=== PATIENT | female | born 1940 | race Caucasian/White ===

== ENCOUNTER 2016-11-04 16:51 | Emergency (ER) | payer OTHER ==
[2016-11-04 17:04] VITALS: TEMP 97.5; BMI 19.5
--- NOTE | 2016-11-04 17:29 | PDOC ---
*Physical Exam - Vital Signs Last Vital Signs Temp Pulse Resp BP Pulse Ox 97.5 F L 61 18 210/86 99 11/04/16 16:54 11/04/16 16:54 11/04/16 16:54 11/04/16 16:54 11/04/16 16:54 ED Treatment Course - LABORATORY CBC & Chemistry Diagram: 11/04/16 18:00 11/04/16 18:04 Medical Decision Making - Medical Decision Making 11/04/16 17:29 Pt seen by the Advanced Practice Provider under my direct supervision Ancillary studies reviewed I agree with plan as outlined by the Advanced Practice Provider JAYANT Tang *DC/Admit/Observation/Transfer Diagnosis at time of Disposition: Hypertension - Discharge Dispostion Disposition: HOME Condition at time of disposition: Stable - Prescriptions Prescriptions: Clonidine HCl [Catapres] 0.1 mg PO TID #30 tablet Clonidine HCl [Catapres] 0.1 mg PO TID #90 tablet - Referrals Referrals: Annmarie Gotti MD [Primary Care Provider] - - Patient Instructions Printed Discharge Instructions: High Blood Pressure Additional Instructions: Rx: Catapres .1mg three times a day Dr. Gotti is requesting that you take one baby aspirin 81 mg daily Rest Return to the ER for severfe/persistent/worsening symptoms FOLLOW UP WITH DR. GOTTI THIS WEEK Print Language: TAMAZIGHT
[2016-11-04 17:50] LABS: URINE APPEARANCE CLEAR; URINE BILIRUBIN NEGATIVE (NEGATIVE); URINE COLOR COLORLESS; URINE GLUCOSE (UA) 2+ (NEGATIVE); URINE KETONE NEGATIVE (NEGATIVE); URINE LEUK ESTERASE NEGATIVE (NEGATIVE); URINE NITRITE NEGATIVE (NEGATIVE); URINE PROTEIN NEGATIVE (NEGATIVE); URINE UROBILINOGEN NEGATIVE E.U./dl (0.2-1.0)
[2016-11-04 17:55] LABS: URINE BLOOD 1+ (NEGATIVE)
--- NOTE | 2016-11-04 17:58 | PDOC ---
History of Present Illness - General Chief Complaint: Pain Stated Complaint: NUMBNESS TO RIGHT SIDE Time Seen by Provider: 11/04/16 17:10 History Source: Patient Exam Limitations: No Limitations - History of Present Illness Initial Comments: 11/04/16 17:05 76-year-old female with history of Alzheimer's and diabetes presents with complaints of right arm cramping that lasted approximately 5 minutes starting in her fingers radiating up to her right shoulder while she was reaching for something in her back. Patient states symptoms decided had no other complaints including headache, chest pain, shortness of breath, dizziness, or numbness of the right upper extremity. Patient states has no history of neuropathy and denies previous symptoms. Patient denies any recent change in medications, recent change in weight, or recent change in diet. Timing/Duration: momentarily, resolved prior to arrival Severity: mild Associated Symptoms: reports: denies symptoms Past History - Travel Traveled outside of the country in the last 30 days: No Close contact w/someone who was outside of country & ill: No - Past Medical History Allergies/Adverse Reactions: Allergies Allergy/AdvReac Type Severity Reaction Status Date / Time No Known Allergies Allergy Verified 11/04/16 17:05 Home Medications: Ambulatory Orders Clonidine HCl [Catapres] 0.1 mg PO TID #30 tablet 11/04/16 Clonidine HCl [Catapres] 0.1 mg PO TID #90 tablet 11/04/16 Metformin HCl 500 mg PO DAILY 11/04/16 Diabetes: Yes - Surgical History Cholecystectomy: Yes - Psycho/Social/Smoking Cessation Hx Anxiety: No Suicidal Ideation: No Smoking History: Never smoked Have you smoked in the past 12 months: No Information on smoking cessation initiated: No Hx Alcohol Use: No Drug/Substance Use Hx: No Substance Use Type: None Patient Lives Alone: No Lives with/in: spouse/SO Review of Systems - Review of Systems Able to Perform ROS?: Yes Constitutional: No: Symptoms Reported HEENTM: No: Symptoms Reported Respiratory: No: Symptoms reported Cardiac (ROS): No: Symptoms Reported ABD/GI: No: Symptoms Reported : No: Symptoms Reported Musculoskeletal: Yes: Muscle Pain Integumentary: No: Symptoms Reported Neurological: No: Symptoms reported, Numbness, Weakness, Dizziness *Physical Exam - Vital Signs Last Vital Signs Temp Pulse Resp BP Pulse Ox 97.5 F L 61 18 210/86 99 11/04/16 16:54 11/04/16 16:54 11/04/16 16:54 11/04/16 16:54 11/04/16 16:54 - Physical Exam General Appearance: Yes: Nourished, Appropriately Dressed. No: Apparent Distress Heart Score/ECG Review - ECG Intrepretation Rhythm: Regular Rhythm (rate 63normal sinus rhythm) ED Treatment Course - LABORATORY CBC & Chemistry Diagram: 11/04/16 18:00 11/04/16 18:04 - RADIOLOGY Radiology Studies Ordered: Category Date Time Status HEAD CT WITHOUT CONTRAST [CT] Stat CT Scan 11/04/16 17:13 Ordered CHEST X-RAY PORTABLE* [RAD] Stat Radiology 11/04/16 17:14 Ordered Medical Decision Making - Medical Decision Making 11/04/16 17:08 Patient here for evaluation of episodic right arm pain that she describes as a cramping sensation beginning in her fingers going to her right shoulder. Patient on exam and arrival had no other complaints was asymptomatic but had a noted BP of 200/100 despite having no history of hypertension. Patient had no neuro focal deficits and had no complaints of headache change in urine pattern, or lower extremity edema. Patient ordered for cardiac workup including a head CT. Patient also ordered for magnesium and chemistry to rule out electrolyte imbalance. 11/04/16 17:59 Laboratory Tests 11/04/16 17:38 Urine Glucose (UA) 2+ H Urine Blood 1+ H Ur Leukocyte Esterase Negative *DC/Admit/Observation/Transfer Diagnosis at time of Disposition: Hypertension - Discharge Dispostion Disposition: HOME Condition at time of disposition: Stable - Prescriptions Prescriptions: Clonidine HCl [Catapres] 0.1 mg PO TID #30 tablet Clonidine HCl [Catapres] 0.1 mg PO TID #90 tablet - Referrals Referrals: Annmarie Gotti MD [Primary Care Provider] - - Patient Instructions Printed Discharge Instructions: High Blood Pressure Additional Instructions: Rx: Catapres .1mg three times a day Dr. Gotti is requesting that you take one baby aspirin 81 mg daily Rest Return to the ER for severfe/persistent/worsening symptoms FOLLOW UP WITH DR. GOTTI THIS WEEK Print Language: CHINESE
[2016-11-04 18:05] LABS: URINE BACTERIA RARE /hpf (NONE SEEN); URINE HYALINE CAST 1 /lpf; URINE RBC <1 /hpf (0-3); URINE WBC 2 /hpf (3-5)
[2016-11-04 18:08] LABS: BASOPHIL 0.6 % (0-2.0); EOSINOPHIL 4.2 % (0-4.5); MCHC 32.1 g/dl (32.0-36.0); NEUTROPHILS 59.3 % (42.8-82.8); PLATELET COUNT 254 K/MM3 (134-434); RDW 15.1 % (11.6-15.6); WHITE BLOOD COUNT 7.3 K/mm3 (4.0-10.0)
[2016-11-04 18:24] LABS: INR 1.08 (0.82-1.09); PROTHROMBIN TIME (PATIENT) 11.9 SEC (9.98-11.88)
[2016-11-04 18:34] LABS: ALBUMIN 3.7 g/dl (3.4-5.0); ANION GAP 9 (8-16); BILIRUBIN,TOTAL 0.2 mg/dL (0.2-1.0); CO2 27 mmol/L (21-32); CREATININE 1.1 mg/dL (0.55-1.02); GLUCOSE,RANDOM 263 mg/dL (74-106); MAGNESIUM 1.8 mg/dL (1.8-2.4); SGOT/AST 12 U/L (15-37); SGPT/ALT 17 U/L (12-78); TOT PROT 7.4 g/dl (6.4-8.2)
[2016-11-04 18:36] LABS: ALK PHOS 102 U/L (45-117); TROPONIN I < 0.02 ng/ml (0.00-0.05)
[2016-11-04] MEDS ORDERED: ENALAPRIL MALEATE 5 MG TABLET (FP) ONE (20:05)
[2016-11-04] MEDS ORDERED: ENALAPRIL MALEATE 10 MG TABLET (FP) PO SCH (20:15)
--- NOTE | 2016-11-04 20:40 | PDOC ---
*Physical Exam - Vital Signs Last Vital Signs Temp Pulse Resp BP Pulse Ox 97.5 F L 64 16 200/100 99 11/04/16 16:54 11/04/16 20:05 11/04/16 20:05 11/04/16 20:05 11/04/16 16:54 ED Treatment Course - LABORATORY CBC & Chemistry Diagram: 11/04/16 18:00 11/04/16 18:04 - ADDITIONAL ORDERS Additional order review: Laboratory Results 11/04/16 11/04/16 11/04/16 18:04 18:04 17:38 INR 1.08 Sodium 142 Potassium 3.9 Chloride 106 Carbon Dioxide 27 Anion Gap 9 BUN 17 Creatinine 1.1 H Creat Clearance w eGFR 48.04 Random Glucose 263 H Calcium 9.0 Magnesium 1.8 Total Bilirubin 0.2 AST 12 L ALT 17 Alkaline Phosphatase 102 Creatine Kinase 100 Troponin I < 0.02 Total Protein 7.4 Albumin 3.7 Urine Color Colorless Urine Appearance Clear Urine pH 6.0 Ur Specific Julian 1.010 Urine Protein Negative Urine Glucose (UA) 2+ H Urine Ketones Negative Urine Blood 1+ H Urine Nitrite Negative Urine Bilirubin Negative Urine Urobilinogen Negative Ur Leukocyte Esterase Negative Urine RBC <1 Urine WBC 2 Ur Epithelial Cells Rare Urine Bacteria Rare Hyaline Casts 1 11/04/16 18:00 RBC 4.42 MCV 87.0 MCHC 32.1 RDW 15.1 MPV 9.0 Neutrophils % 59.3 Lymphocytes % 29.3 Monocytes % 6.6 Eosinophils % 4.2 Basophils % 0.6 Progress Note - Progress Note Progress Note: 2015hrs: Called Dr. Gotit [phone] 2209hrs: Spoke to Dr. Gotti/ advised to d/c with Catapress .1mg tid and sugg asa 81mg daily D/u ingrid quinonez in his office *DC/Admit/Observation/Transfer Diagnosis at time of Disposition: Hypertension Qualifiers: Hypertension type: unspecified secondary hypertension Qualified Code(s): I15.9 - Secondary hypertension, unspecified - Discharge Dispostion Disposition: HOME Condition at time of disposition: Stable Admit: No - Prescriptions Prescriptions: Clonidine HCl [Catapres] 0.1 mg PO TID #30 tablet - Referrals Referrals: Annmarie Gotti MD [Primary Care Provider] - - Patient Instructions Printed Discharge Instructions: High Blood Pressure Additional Instructions: Rx: Catapres .1mg three times a day Dr. Gotti is requesting that you take one baby aspirin 81 mg daily Rest Return to the ER for severfe/persistent/worsening symptoms FOLLOW UP WITH DR. GOTTI THIS WEEK Print Language: MONGOLIAN
[2016-11-04] MEDS ORDERED: cloNIDine HCL 0.1 MG TABLET ONE (21:05)
[2016-11-04] MEDS ORDERED: cloNIDine HCL 0.1 MG TABLET PO ONE (21:08)
[2016-11-04 22:04] VITALS: BP 160/77; PULSE 60
[2016-11-05] MEDS ORDERED: cloNIDine HCL 0.1 MG TABLET PO SCH (10:00)
--- NOTE | 2016-11-05 21:15 | EKG ---
Test Reason : Blood Pressure : / mmHG Vent. Rate : 061 BPM Atrial Rate : 061 BPM P-R Int : 172 ms QRS Dur : 084 ms QT Int : 416 ms P-R-T Axes : 028 -10 025 degrees QTc Int : 418 ms NORMAL SINUS RHYTHM NORMAL ECG NO PREVIOUS ECGS AVAILABLE Confirmed by LIZ GOODWIN MD ([id number]) on 11/05/2016 9:14:46 PM Referred By: Confirmed By:LIZ GOODWIN MD
== END 2016-11-04 22:37 | disposition home or self-care (01) ==
LOC: JER 16:51
DX: I10 Essential (primary) hypertension (principal); E11.9 Type 2 diabetes mellitus without complications; Z79.84 Long term (current) use of oral hypoglycemic drugs
CPT/HCPCS: 36415; 70450-TC; 71010-TC; 80053; 81003; 81015; 82550; 83735; 84484; 85025; 85610; 93005; 93010; 99283-25

== ENCOUNTER 2016-11-08 18:28 | Observation (INO) | payer OTHER ==
--- NOTE | 2016-11-08 18:45 | PDOC ---
History of Present Illness - History of Present Illness Initial Comments: 11/08/16 19:40 Patient is a 76 year old female with significant medical hx of Alzheimers and DM who is presenting to the ED after receiving a positive MRI for subdural hemorrhage. History was provided by family at bedside. Patient is chronically forgetful at baseline but recently has been complaining of right sided headache for the past few days. Family reports that they feel the patient may have fell without telling them. The patient was seen in the ED on 11/04 for right arm pain and received a Head CT that was negative for bleed. She followed up with her PMD who sent her for brain MRI which demonstrated subdural hemorrhage. Denies weakness, vomiting, change in behavior, seizures, or change in mental status. Patient recently started taking aspirin a few days ago. PCP: Dr. Wei <Barbara Carvalho - Last Filed: 11/08/16 20:17> <Benita Pak - Last Filed: 11/10/16 08:11> - General Chief Complaint: CVA/TIA Stated Complaint: PCP SENT/BLOOD CLOT Time Seen by Provider: 11/08/16 18:42 Past History <Barbara Carvalho - Last Filed: 11/08/16 20:17> - Past Medical History Dementia: No (MEMOR LOSS) Diabetes: Yes - Surgical History Cholecystectomy: Yes - Psycho/Social/Smoking Cessation Hx Anxiety: No Suicidal Ideation: No Smoking History: Never smoked Have you smoked in the past 12 months: No Hx Alcohol Use: No Drug/Substance Use Hx: No Substance Use Type: None <Benita Pak - Last Filed: 11/10/16 08:11> - Past Medical History Allergies/Adverse Reactions: Allergies Allergy/AdvReac Type Severity Reaction Status Date / Time No Known Allergies Allergy Verified 11/08/16 18:35 Home Medications: Ambulatory Orders Metformin HCl 500 mg PO DAILY 11/04/16 Amlodipine Besylate [Norvasc -] 10 mg PO DAILY tablet 11/09/16 Donepezil HCl [Aricept -] 5 mg PO DAILY tablet 11/09/16 Review of Systems - Review of Systems Comments:: 11/08/16 19:40 GENERAL/CONSTITUTIONAL: No fever or chills. No weakness. HEAD, EYES, EARS, NOSE AND THROAT: No change in vision. No ear pain or discharge. No sore throat. CARDIOVASCULAR: No chest pain or shortness of breath. RESPIRATORY: No cough, wheezing, or hemoptysis. GASTROINTESTINAL: No nausea, vomiting, diarrhea or constipation. GENITOURINARY: No dysuria, frequency, or change in urination. MUSCULOSKELETAL: No joint or muscle swelling or pain. No neck or back pain. ENDOCRINE: No increased thirst. No abnormal weight change. SKIN: No rash NEUROLOGIC: Right sided headache, forgetfulness (chronic). No vertigo, loss of consciousness, or change in strength/sensation. <MaiaBarbara - Last Filed: 11/08/16 20:17> *Physical Exam - Vital Signs Last Vital Signs Temp Pulse Resp BP Pulse Ox 98.3 F 100 H 20 138/74 97 11/08/16 18:30 11/08/16 18:30 11/08/16 18:30 11/08/16 18:30 11/08/16 18:30 <MaiaBarbara - Last Filed: 11/08/16 20:17> - Vital Signs Last Vital Signs Temp Pulse Resp BP Pulse Ox 98.3 F 100 H 20 138/74 97 11/08/16 18:30 11/08/16 18:30 11/08/16 18:30 11/08/16 18:30 11/08/16 18:30 - Physical Exam Comments: GENERAL: Awake, alert, and oriented to person and place, in no acute distress HEAD: No signs of trauma EYES: PERRLA, EOMI, sclera anicteric, conjunctiva clear ENT: Auricles normal inspection, hearing grossly normal, nares patent, oropharynx clear without exudates. Moist mucosa NECK: Normal ROM, supple, no lymphadenopathy, JVD, or masses LUNGS: Breath sounds equal, clear to auscultation bilaterally. No wheezes, and no crackles HEART: Regular rate and rhythm, normal S1 and S2, no murmurs, rubs or gallops ABDOMEN: Soft, nontender, normoactive bowel sounds. No guarding, no rebound. No masses EXTREMITIES: Normal range of motion, no edema. No clubbing or cyanosis. No cords, erythema, or tenderness NEUROLOGICAL: Cranial nerves II through XII grossly intact. Normal speech, normal gait. No weakness, no numbness. SKIN: Warm, Dry, normal turgor, no rashes or lesions noted. <Benita Pak - Last Filed: 11/10/16 08:11> ED Treatment Course - LABORATORY CBC & Chemistry Diagram: 11/08/16 19:29 11/08/16 19:29 - RADIOLOGY Radiograph Interpretation: 11/08/16 20:[address] Impression: No definite interval change is identified. Reported By: Hakeem Fisher MD <Barbara Carvalho - Last Filed: 11/08/16 20:17> - LABORATORY CBC & Chemistry Diagram: 11/08/16 19:29 11/08/16 19:29 <Benita Pak - Last Filed: 11/10/16 08:11> Medical Decision Making - Medical Decision Making Case d/w Dr. Martinez, NSx. She has a negative CTH from 4 days prior to arrival. MRI report was not available upon patient arrival in ED, as it was done in an outside location, and patient did not have a copy. I initially ordered CTH to confirm the result of SDH, and it was negative. At this point I discussed with Dr. Christianson, who stated that the MRI was read as a small SDH along the falx with midline shift. OF note, patient is chronically forgetful, this is unchanged. There was no known trauma, however, family states that she could have fallen and not told anybody due to chronic memory loss. Dr. Martinez evaluated patient in the ED and examined. The scans do not appear to be consistent with a bleed. There were some subtle neuro exam findings, however, so he recommended overnight obs and neuro c/s in AM. <Benita Pak - Last Filed: 11/10/16 08:11> *DC/Admit/Observation/Transfer - Attestations Scribe Attestion: 11/08/16 19:41 Documentation prepared by Barbara Carvalho, acting as medical insurance coder for Benita Pak MD. <Barbara Carvalho - Last Filed: 11/08/16 20:17> - Discharge Dispostion Admit: Yes <Benita Pak - Last Filed: 11/10/16 08:11> Diagnosis at time of Disposition: Headache Qualifiers: Headache type: unspecified Headache chronicity pattern: acute headache Intractability: not intractable Qualified Code(s): R51 - Headache - Discharge Dispostion Disposition: HOME Condition at time of disposition: Stable - Referrals
[2016-11-08 20:08] LABS: BASOPHIL 0.4 % (0-2.0); MCH 28.3 pg (25.7-33.7); MCHC 32.4 g/dl (32.0-36.0); MEAN CELL VOLUME 87.2 fl (80-96); MEAN PLT VOLUME 9.4 fl (7.5-11.1); NEUTROPHILS 67.3 % (42.8-82.8); PLATELET COUNT 289 K/MM3 (134-434); RDW 15.1 % (11.6-15.6); WHITE BLOOD COUNT 8.7 K/mm3 (4.0-10.0)
[2016-11-08 20:21] LABS: INR 1.11 (0.82-1.09); PROTHROMBIN TIME (PATIENT) 12.2 SEC (9.98-11.88)
[2016-11-08 20:38] LABS: ALBUMIN 4.2 g/dl (3.4-5.0); ALK PHOS 103 U/L (45-117); ANION GAP 13 (8-16); BILIRUBIN,TOTAL 0.3 mg/dL (0.2-1.0); CO2 25 mmol/L (21-32); CREATININE 1.1 mg/dL (0.55-1.02); GLUCOSE,RANDOM 300 mg/dL (74-106); SGOT/AST 15 U/L (15-37); SGPT/ALT 19 U/L (12-78); TOT PROT 8.2 g/dl (6.4-8.2)
--- NOTE | 2016-11-08 21:28 | CONSULT ---
Consult - text type - Consultation Consultation Note: Marquita Paulson is a 76 year old female who presented to the [facility] ER 4 days ago with complaints of Right arm cramping and numbness. She was found to be newly hypertensive with BP 200/100. She has a history of DM and caries a diagnosis of early Alzheimer's dementia. She underwent Head CT which did not reveal any acute pathology which would explain these symptoms, although mild ventriculomegally was noted. The patient was discharged and subsequently described return of the symptoms as well as "difficulty getting to the light switch" which her family interpreted as anxiety. MRI was done earlier today at an outside facility and this demonstrated "a bleed in the head" and the patient was directed to come to the ER by the office of her PCP, Dr. Wei. The patient is here with her spouse and children who translated for her. On Physical exam she appears to be in no acute distress. She answers questions appropriately and the family all agree that she is at her baseline except for the complaints of Right arm numbness which extends to her chin. She has no pronator drift but does extinguish to light touch on the Right with double simultaneous stimulation. 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 The MRI in question and the official reading are not available. A new Head CT also confirms no pathology mandating acute Neurosurgical intervention. This was read as being unchanged from 4 days ago. At this point there she appears to be stable from a Neurosurgical standpoint, however, I feel that the MRI which was described as "a bleed in the head" and the relatively recent onset of Right arm numbness/cramping should be reconciled. I discussed the case with Dr. Pak and we agreed that observation overnight , Neurology evaluation and review of the MRI and report would be a reasonable course of action. I remain available to discuss this case further. I discussed these findings with the family who are in agreement. I spent a total of 30 minutes with the patient with the majority of time being in counseling.
[2016-11-09 03:40] VITALS: BMI 20.7
[2016-11-09] MEDS ORDERED: metFORMIN HCL 500 MG TABLET (FP) PO SCH ×2 (07:00→16:30)
[2016-11-09] MEDS: INSULIN SLIDING SCALE (NOVOLOG) 1 VIAL SQ SCH ×2 (07:05→12:30)
--- NOTE | 2016-11-09 07:27 | HP ---
Admitting History and Physical - Primary Care Physician PCP: Annmarie Wei - Admission Chief Complaint: right arm numbness History of Present Illness: has been to er 6., drs office . c/o right arm numbness. CT on 11.04 unremarkable. Outpt MRI without contrast on 11.08 shows : "new small subacute hematoma along left posterior falx with mild mass effect on left parietal lobe. Atrophy and chronic small vessel disease." -report in chart. pt was sent to er where repeat head cT was negative for bleed. 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) Cardiovascular: Yes: HTN (hs been on lisinopril 5 mg until recently, last er visit bp was 200/100, meds wer changed.) Endocrine: Yes: Diabetes Mellitus - Smoking History Smoking history: Never smoked Have you smoked in the past 12 months: No - Alcohol/Substance Use Hx Alcohol Use: No Home Medications - Allergies Allergies/Adverse Reactions: Allergies Allergy/AdvReac Type Severity Reaction Status Date / Time No Known Allergies Allergy Verified 11/08/16 18:35 - Home Medications Home Medications: Ambulatory Orders Metformin HCl 500 mg PO DAILY 11/04/16 Aspirin [ASA -] 81 mg PO DAILY 11/08/16 Atenolol [Tenormin -] 10 mg PO DAILY 11/08/16 Family Disease History - Family Disease History Family History: Unable to Obtain Review of Systems - Review of Systems Constitutional: reports: No Symptoms Eyes: reports: No Symptoms HENT: reports: No Symptoms Neck: reports: No Symptoms Respiratory: reports: No Symptoms Gastrointestinal: reports: No Symptoms Genitourinary: reports: No Symptoms Integumentary: reports: No Symptoms Neurological: reports: Other (as noted right arm numbness, dementia at baseline) Physical Examination Vital Signs: Vital Signs Temperature 97.3 F L 11/09/16 05:58 Pulse Rate 69 11/09/16 05:58 Respiratory Rate 20 11/09/16 05:58 Blood Pressure 156/75 11/09/16 05:58 O2 Sat by Pulse Oximetry (%) 95 11/09/16 03:21 Constitutional: Yes: Well Nourished, No Distress, Calm Eyes: Yes: Conjunctiva Clear, EOM Intact HENT: Yes: Normocephalic Neck: Yes: Trachea Midline Cardiovascular: Yes: Regular Rate and Rhythm Respiratory: Yes: CTA Bilaterally Gastrointestinal: Yes: Normal Bowel Sounds, Soft Edema: No Peripheral Pulses WNL: Yes Neurological: Yes: Other (no gross deficit noted) ...Motor Strength: WNL Psychiatric: Yes: Alert Labs: Laboratory Results - last 24 hr 11/08/16 11/08/16 11/08/16 19:29 19:29 19:29 WBC 8.7 RBC 4.98 Hgb 14.1 D Hct 43.4 MCV 87.2 MCHC 32.4 RDW 15.1 Plt Count 289 MPV 9.4 Neutrophils % 67.3 Lymphocytes % 24.5 Monocytes % 6.8 Eosinophils % 1.0 Basophils % 0.4 INR 1.11 PTT (Actin FS) 33.0 Sodium 140 Potassium 3.7 Chloride 102 Carbon Dioxide 25 Anion Gap 13 BUN 18 Creatinine 1.1 H Creat Clearance w eGFR 48.04 POC Glucometer Random Glucose 300 H Calcium 10.0 Total Bilirubin 0.3 D AST 15 D ALT 19 Alkaline Phosphatase 103 Total Protein 8.2 Albumin 4.2 Blood Type Antibody Screen 11/08/16 11/09/16 19:29 05:50 WBC RBC Hgb Hct MCV MCHC RDW Plt Count MPV Neutrophils % Lymphocytes % Monocytes % Eosinophils % Basophils % INR PTT (Actin FS) Sodium Potassium Chloride Carbon Dioxide Anion Gap BUN Creatinine Creat Clearance w eGFR POC Glucometer 213 Random Glucose Calcium Total Bilirubin AST ALT Alkaline Phosphatase Total Protein Albumin Blood Type O POSITIVE Antibody Screen Negative Imaging - Results Cat Scan: Report Reviewed MRI: Report Reviewed Problem List - Problems (1) Hypertension Code(s): I10 - ESSENTIAL (PRIMARY) HYPERTENSION Qualifiers: Hypertension type: essential hypertension Qualified Code(s): I10 - Essential (primary) hypertension (2) Diabetes mellitus Code(s): E11.9 - TYPE 2 DIABETES MELLITUS WITHOUT COMPLICATIONS Qualifiers: Diabetes mellitus type: type 2 Diabetes mellitus complication status: without complication Diabetes mellitus correction insulin use: without bed bug exterminator use Qualified Code(s): E11.9 - Type 2 diabetes mellitus without complications (3) Left parietal lobe lesion Code(s): G93.9 - DISORDER OF BRAIN, UNSPECIFIED (4) Alzheimer's dementia Code(s): G30.9 - ALZHEIMER'S DISEASE, UNSPECIFIED Qualifiers: Alzheimer's disease onset: unspecified onset Dementia behavioral disturbance: without behavioral disturbance Qualified Code(s): G30.9 - Alzheimer's disease, unspecified; F02.80 - Dementia in other diseases classified elsewhere without behavioral disturbance Assessment/Plan pt is admitted for observation pending neurological evaluation hematoma vs amyloid deposit BP control continue metformin
--- NOTE | 2016-11-09 08:48 | CON.NEURO ---
Consult - History of Present Illness History of Present Illness: 76 year old female with significant medical hx of Alzheimers and DM who is presenting to the ED after receiving a positive MRI for subdural hemorrhage. History was provided by family at bedside. Patient is chronically forgetful at baseline but recently has been complaining of right sided headache for the past few days. Family reports that they feel the patient may have fell without telling them. The patient was seen in the ED on 11/04 for right arm pain and received a Head CT that was negative for bleed. She followed up with her PMD who sent her for brain MRI which demonstrated subdural hemorrhage. Denies weakness, vomiting, change in behavior, seizures, or change in mental status. Patient recently started taking aspirin a few days ago. THis AM, c/o mild pain in the right knee; otherwise no MARRERO or arm pain. Spoke to her daughetr , lives with , memory issues, still cooks , cleans; prior MRI NA. 11/08/16 Status: [place] [address] Unit Number: [id number] EXAM#: TYPE/EXAM: RESULT: [id number] CT/HEAD CT WITHOUT CONTRAST Cranial CT without contrast Clinical information given: subdural hematoma No subdural fluid collection is identified. There has been no definite interval change in comparison to a previous CT study of 11/04/2016. Advanced periventricular and subcortical chronic microvascular ischemic changes are noted. No discrete infarct is identified. Generalized cerebral atrophy is seen with corresponding mild to moderate ventricular dilatation. No obvious mass lesion is noted on noncontrast imaging. Impression: No definite interval change is identified. 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 CLERICAL: Yes: Alzheimer's (mild) Cardio/Vascular: Yes: HTN (hs been on lisinopril 5 mg until recently, last er visit bp was 200/100, meds wer changed.) Endocrine: Yes: Diabetes Mellitus - Alcohol/Substance Use Hx Alcohol Use: No - Smoking History Smoking history: Never smoked Have you smoked in the past 12 months: No Home Medications - Allergies Allergies/Adverse Reactions: Allergies Allergy/AdvReac Type Severity Reaction Status Date / Time No Known Allergies Allergy Verified 11/08/16 18:35 - Home Medications Home Medications: Ambulatory Orders Metformin HCl 500 mg PO DAILY 11/04/16 Aspirin [ASA -] 81 mg PO DAILY 11/08/16 Atenolol [Tenormin -] 10 mg PO DAILY 11/08/16 Physical Exam-Neuro Vital Signs: Vital Signs Temperature 97.3 F L 11/09/16 05:58 Pulse Rate 69 11/09/16 05:58 Respiratory Rate 20 11/09/16 05:58 Blood Pressure 156/75 11/09/16 05:58 O2 Sat by Pulse Oximetry (%) 95 11/09/16 03:21 Constitutional: Yes: Well Nourished Labs: INR, PTT INR 1.11 (0.82-1.09) 11/08/16 19:29 - Neuro Exam Level Of Consciousness: Yes: Alert (awake , calm and conversive, follows basic request, SS, EOMI, no facial, no focal weakness, swelling R knee, reflexes symmettric, walking steady) NIH Stroke Scale - Total Score NIH Stroke Scale Score: 0 Imaging - Results Cat Scan: Report Reviewed, Image Reviewed Problem List - Problems (1) Alzheimer's dementia Code(s): G30.9 - ALZHEIMER'S DISEASE, UNSPECIFIED Qualifiers: Alzheimer's disease onset: unspecified onset Dementia behavioral disturbance: without behavioral disturbance Qualified Code(s): G30.9 - Alzheimer's disease, unspecified; F02.80 - Dementia in other diseases classified elsewhere without behavioral disturbance (2) Diabetes mellitus Code(s): E11.9 - TYPE 2 DIABETES MELLITUS WITHOUT COMPLICATIONS Qualifiers: Diabetes mellitus type: type 2 Diabetes mellitus complication status: without complication Diabetes mellitus nursing home insulin use: without nursing home use Qualified Code(s): E11.9 - Type 2 diabetes mellitus without complications (3) Headache Code(s): R51 - HEADACHE Qualifiers: Headache type: unspecified Headache chronicity pattern: acute headache Intractability: not intractable Qualified Code(s): R51 - Headache Assessment/Plan 76 year old female with significant medical hx of Alzheimers and DM who is presenting to the ED after receiving a positive MRI for subdural hemorrhage. CT HD does not show subdural. she is at her neurological baseline. ideally to review prior MRI BRAIN when available. does not endorse MARRERO. no focal c/o today beyond R knee pain--may use NSAIDs for this , oupt ORTHO eval. elevated sugars, can check A1c, suspect uncontrolled DM. ? compliance with regimen ? SECURITY INSPECTOR services needed. can start dementia RX-Aricept [address] Post [phone]
[2016-11-09] MEDS ORDERED: ATENOLOL 25 MG TABLET (FP) PO SCH (10:00)
[2016-11-09] MEDS ORDERED: amLODIPine BESYLATE 10 MG TABLET (FP) PO SCH (10:00)
[2016-11-09] MEDS ORDERED: DONEPEZIL HCL 5 MG TABLET (FP) PO SCH (10:00)
--- NOTE | 2016-11-09 11:07 | EKG ---
Test Reason : Blood Pressure : / mmHG Vent. Rate : 072 BPM Atrial Rate : 072 BPM P-R Int : 158 ms QRS Dur : 098 ms QT Int : 396 ms P-R-T Axes : 012 -30 027 degrees QTc Int : 433 ms NORMAL SINUS RHYTHM LEFT AXIS DEVIATION MINIMAL VOLTAGE CRITERIA FOR LVH, MAY BE NORMAL VARIANT POSSIBLE LATERAL INFARCT , AGE UNDETERMINED ABNORMAL ECG WHEN COMPARED WITH ECG OF 04-NOV-2016 17:14, NO SIGNIFICANT CHANGE WAS FOUND Confirmed by PARI CROWLEY MD ([id number]) on 11/09/2016 11:07:09 AM Referred By: Confirmed By:PARI CROWLEY MD
[2016-11-09] MEDS ORDERED: INSULIN (NOVOLOG) ASPART 100 UNITS/ML 10ML VIAL ONE (12:17)
[2016-11-09 14:38] VITALS: BP 147/91; PULSE 80; TEMP 97.9
== END 2016-11-09 16:44 | disposition home or self-care (01) ==
LOC: JER 18:28 → JERBED 21:21 → J8W 11-09 03:15
PROVIDERS: ADMIT Internal Medicine; ATTEND Internal Medicine
DX: R51 Headache (principal); R20.0 Anesthesia of skin; I10 Essential (primary) hypertension; G30.9 Alzheimer's disease, unspecified; F02.80 Dementia in other diseases classified elsewhere, unspecified severity, without behavioral disturbance, psychotic disturbance, mood disturbance, and anxiety; E11.9 Type 2 diabetes mellitus without complications; G93.9 Disorder of brain, unspecified; Z79.84 Long term (current) use of oral hypoglycemic drugs; Z79.82 Long term (current) use of aspirin
CPT/HCPCS: 36415; 70450-TC; 80053; 85025; 85610; 85730; 86850; 86900; 86901; 93005; 93010; 97116-GP; 97161-GP; 99285-25; G0378

== ENCOUNTER 2018-05-22 15:00 | Emergency (ER) | payer OTHER ==
--- NOTE | 2018-05-22 15:18 | PDOC ---
Rapid Medical Evaluation Time Seen by Provider: 05/22/18 15:15 Medical Evaluation: Allergies Allergy/AdvReac Type Severity Reaction Status Date / Time No Known Allergies Allergy Verified 11/08/16 18:35 05/22/18 15:17 I have performed a brief in-person evaluation of this patient. The patient presents with a chief complaint of: sent by PMD for rectal bleeding Pertinent physical exam findings: deferred I have ordered the following: labs The patient will proceed to the ED for further evaluation. Discharge Disposition - Diagnosis Rectal bleeding - Referrals - Patient Instructions - Post Discharge Activity
[2018-05-22 15:20] VITALS: BMI 23.6
[2018-05-22 16:19] LABS: BASO % 0.6 % (0-2.0); HEMATOCRIT 40.3 % (32.4-45.2); LYMPH % 24.5 % (8-40); MCH 30.6 pg (25.7-33.7); MCHC 34.7 g/dl (32.0-36.0); MEAN CELL VOLUME 88.2 fl (80-96); MEAN PLT VOLUME 9.5 fl (7.5-11.1); MONO % 5.2 % (3.8-10.2); NEUT % 67.7 % (42.8-82.8); PLATELET COUNT 293 K/MM3 (134-434); RBC 4.57 M/mm3 (3.60-5.2); RDW 14.1 % (11.6-15.6); WHITE BLOOD COUNT 8.9 K/mm3 (4.0-10.0)
[2018-05-22 17:00] LABS: ALBUMIN 4.1 g/dl (3.4-5.0); ALK PHOS 132 U/L (45-117); ANION GAP 11 MMOL/L (8-16); BILIRUBIN,TOTAL 0.3 mg/dL (0.2-1); BLOOD UREA NITROGEN 13 mg/dL (7-18); CALCIUM 9.5 mg/dL (8.5-10.1); CHLORIDE 107 mmol/L (98-107); CO2 23 mmol/L (21-32); CREATININE 1.5 mg/dL (0.55-1.3); GLUCOSE,RANDOM 269 mg/dL (74-106); SGOT/AST 21 U/L (15-37); SGPT/ALT 26 U/L (13-61); SODIUM 141 mmol/L (136-145); TOT PROT 8.2 g/dl (6.4-8.2)
--- NOTE | 2018-05-22 18:00 | PDOC ---
History of Present Illness - General Chief Complaint: Rectal Bleed Stated Complaint: HEMMORHOIDS Time Seen by Provider: 05/22/18 15:15 History Source: Family Exam Limitations: No Limitations - History of Present Illness Initial Comments: 05/22/18 18:00 76 year old female with past medical history of Alzheimers, HTN, DM and hemorrhoids who presents with blood on stool as reported to daughter. The patient's daughter brought her to her PCP who was concerned about blood in stool and sent the patient to the ED. The patient has had 5 bowel movements today that were reported to be normal and soft. The patient and daugher deny abdominal pain, no nausea, no vomiting, no constipation. Per daughter patient is unreliable due to dementia and forgetfulness. The patient and daughter deny recent illness, recent travel. The patient is not on anticoagulants. 05/22/18 20:54 Past History - Past Medical History Allergies/Adverse Reactions: Allergies Allergy/AdvReac Type Severity Reaction Status Date / Time No Known Allergies Allergy Verified 05/22/18 15:20 Home Medications: Ambulatory Orders metFORMIN HCL [Metformin HCl] 500 mg PO DAILY 11/04/16 Amlodipine Besylate [Norvasc -] 10 mg PO DAILY tablet 11/09/16 Donepezil HCl [Aricept -] 5 mg PO DAILY tablet 11/09/16 COPD: No Dementia: Yes (MEMOR LOSS) Diabetes: Yes HTN: Yes - Surgical History Cholecystectomy: Yes - Suicide/Smoking/Psychosocial Hx Smoking History: Never smoked Have you smoked in the past 12 months: No Information on smoking cessation initiated: No Hx Alcohol Use: No Drug/Substance Use Hx: No Substance Use Type: None Review of Systems - Review of Systems Able to Perform ROS?: Yes Is the patient limited Telugu proficient: No Constitutional: No: Chills, Diaphoresis, Fever HEENTM: No: Blurred Vision, Tinnitus Respiratory: No: Cough, Orthopnea, Shortness of Breath Cardiac (ROS): No: Chest Pain, Lightheadedness, Palpitations, Syncope ABD/GI: No: Constipated, Diarrhea, Nausea, Vomiting : No: Burning, Dysuria, Hematuria Musculoskeletal: No: Back Pain, Muscle Pain, Muscle Weakness Neurological: No: Headache, Numbness, Tingling *Physical Exam - Vital Signs Last Vital Signs Temp Pulse Resp BP Pulse Ox 97.3 F L 65 17 126/61 96 05/22/18 15:17 05/22/18 15:17 05/22/18 15:17 05/22/18 15:17 05/22/18 15:17 - Physical Exam Comments: 05/22/18 19:12 GENERAL: Awake, alert, and fully oriented, in no acute distress HEAD: No signs of trauma, normocephalic, atraumatic EYES: EOMI, sclera anicteric, conjunctiva clear ENT: nares patent, oropharynx clear without exudates. Moist mucosa NECK: Normal ROM, supple LUNGS: No distress, speaks full sentences, clear to auscultation bilaterally HEART: Regular rate and rhythm, normal S1 and S2, no murmurs, rubs or gallops, peripheral pulses normal and equal bilaterally. ABDOMEN: Soft, nontender, normoactive bowel sounds. No guarding, no rebound. No masses EXTREMITIES : Normal inspection, Normal range of motion, no edema. No clubbing or cyanosis. NEUROLOGICAL: Cranial nerves II through XII grossly intact. Normal speech, no focal sensorimotor deficits RECTAL: approx 4-5 external hemorrhoids light pink, no active bleeding. SKIN: Warm, Dry, normal turgor, no rashes or lesions noted Moderate Sedation - Procedure Monitoring Vital Signs: Procedure Monitoring Vital Signs Temperature 97.3 F L 05/22/18 15:17 Pulse Rate 65 05/22/18 15:17 Respiratory Rate 17 05/22/18 15:17 Blood Pressure 126/61 05/22/18 15:17 O2 Sat by Pulse Oximetry (%) 96 05/22/18 15:17 ED Treatment Course - LABORATORY CBC & Chemistry Diagram: 05/22/18 16:04 05/22/18 16:04 - ADDITIONAL ORDERS Additional order review: Laboratory Results 05/22/18 16:04 Sodium 141 Potassium 4.0 Chloride 107 Carbon Dioxide 23 Anion Gap 11 BUN 13 Creatinine 1.5 H Creat Clearance w eGFR 33.41 Random Glucose 269 H Calcium 9.5 Total Bilirubin 0.3 AST 21 ALT 26 Alkaline Phosphatase 132 H Total Protein 8.2 Albumin 4.1 05/22/18 16:04 RBC 4.57 MCV 88.2 MCHC 34.7 RDW 14.1 MPV 9.5 Neutrophils % 67.7 Lymphocytes % 24.5 Monocytes % 5.2 Eosinophils % 2.0 D Basophils % 0.6 Medical Decision Making - Medical Decision Making 76 year old female with past medical history of Alzheimers, HTN, DM and hemorrhoids who presents with blood in stool as reported to daughter. The patient's daughter brought her to her PCP who was concerned about blood in stool and sent the patient to the ED. The patient has had 5 bowel movements today that were reported to be normal and soft. ED Course: LGIB (fissure vs hemorrhoid vs diverticular dz vs Crohns vs UC) vs UGIB (PUD vs gastroesophageal varices vs erosive gastritis/ esophagitis) Patient likely with blood due to external hemorrhoid bleeding cbc, cmp, stool for occult blood hb 14/ hct 40 05/22/18 19:54 Patient has not had a colonoscopy in over 5 years but does not recall when she last had it. 05/22/18 20:[address] Jaimes who will call back with recs but feels patient will likely follow outpatient for colonoscopy. 05/22/18 20:56 All workup negative. Patient stable for discharge *DC/Admit/Observation/Transfer Diagnosis at time of Disposition: Hemorrhoids, Rectal bleeding - Discharge Dispostion Disposition: HOME Condition at time of disposition: Stable Decision to Admit order: No - Referrals Referrals: Krunal Lamas MD [Primary Care Provider] - - Patient Instructions Printed Discharge Instructions: DI for Hemorrhoids, DI for Rectal Bleeding Additional Instructions: You were seen in the ED for complaints of bleeding from the rectum. In the ED you were evaluated with labwork. Your results did not show significant findings. There does not appear to be an acute need for immediate hospitalization. You are advised to follow up with your Primary Care Physician within 2-3 days. Please follow up with your Russian Language Professor within 1 week. Return to the ED immediately if you experience worsening rectal bleeding, lightheadedness, loss of consciousness, abdominal pain, nausea or vomiting. - Post Discharge Activity
--- NOTE | 2018-05-22 19:25 | PDOC ---
Attending Attestation - HPI HPI: 05/22/18 19:28 The patient is an 78 year old female with a past medical history of diabetes, HTN, dementia, and external hemorrhoids here today for evaluation of bloody stool. The patient reports that she had bloody stool and went to her PCP who had her come to the ER. Patient reports that she had 5 bowel movements today that were soft and brown. Patient denies headache, lightheadedness. Denies fever, chills. Denies chest pain, shortness of breath. Denies nausea, vomiting, diarrhea, abdominal pain. Allergies: NKA PCP: Krunal Lamas - Medical Decision Making 05/22/18 19:28 Documentation prepared by MIKAYLA Henning, acting as medical coordinator pesticide use for Jd Daniel MD. <Julio C Saldana - Last Filed: 05/22/18 19:28> - Resident Resident Name: Cheryl Zuniga - ED Attending Attestation I have performed the following: I have examined & evaluated the patient, The case was reviewed & discussed with the resident, I agree w/resident's findings & plan, Exceptions are as noted - Physicial Exam PE: 05/22/18 20:57 Patient is awake and alert, well-nourished, in no distress Normocephalic and atraumatic PERRLA, EOMI, no conjunctival pallor CTA RRR Abdomen is soft, nontender, nondistended, bowel sounds present in all 4 quadrants, there is no guarding or rebound, no hernias - Medical Decision Making 05/22/18 20:58 78-year-old female presents with rectal bleeding. Patient's hemodynamically stable hematocrit of 40. No active bleeding is noted. Patient's stool is negative for occult blood. Case discussed with Dr. Jaimes of GI. Patient is safe for outpatient evaluation. Patient and family instructed on need for prompt follow-up and need to return if symptoms recur or worsen. Will discharge. <Jd Daniel - Last Filed: 05/22/18 20:59>
[2018-05-22] MEDS ORDERED: SODIUM CHLORIDE 1,000 ML IV SCH (19:45)
[2018-05-22 20:34] LABS: URINE APPEARANCE CLEAR; URINE BILIRUBIN NEGATIVE (<2.0 mg/dL); URINE COLOR COLORLESS; URINE GLUCOSE (UA) 1+ (NEGATIVE); URINE KETONE NEGATIVE (NEGATIVE); URINE LEUK ESTERASE NEGATIVE (NEGATIVE); URINE NITRITE NEGATIVE (NEGATIVE); URINE PROTEIN NEGATIVE (NEGATIVE); URINE UROBILINOGEN NEGATIVE mg/dL (0.2-1.0)
[2018-05-22 21:06] VITALS: BP 122/64; PULSE 65; TEMP 98.2
== END 2018-05-22 21:12 | disposition home or self-care (01) ==
LOC: JER 15:00
DX: K64.4 Residual hemorrhoidal skin tags (principal); I10 Essential (primary) hypertension; E11.9 Type 2 diabetes mellitus without complications; G30.8 Other Alzheimer's disease; F02.80 Dementia in other diseases classified elsewhere, unspecified severity, without behavioral disturbance, psychotic disturbance, mood disturbance, and anxiety
CPT/HCPCS: 36415; 80053; 81003; 82272; 85025; 99283-25

== ENCOUNTER 2018-11-30 13:56 | Emergency (ER) | payer OTHER ==
[2018-11-30 14:01] VITALS: BMI 23.9
--- NOTE | 2018-11-30 15:50 | PDOC ---
History of Present Illness - General Chief Complaint: Pain Stated Complaint: ABD. PAIN Time Seen by Provider: 11/30/18 15:37 - History of Present Illness Initial Comments: 11/30/18 15:49 78 yo F with h/o DM, HTN, dementia who p/w right sided abdominal and flank pain. Patient family at bedside to assist in report. Pt. poor historian d/t baseline dementia. Patient reports 2 weeks of intermittent, right upper abdominal and flank pain, and chills. Patient unable to characterize pain. No identifiable triggers or alleviators. Family also endorses 2 weeks of loose, non bloody, watery stools. Pt. endorses dysuria of unknown duration. Denies recent travels or sick contacts. Patient denies MARRERO, vision change, palpitations, cough, wheezing, orthopena, PND , leg swelling/pain, N/V, fever, CP, SOB, hematuria, BPR, constipation, lightheadedness, weakness, sensory changes. PMHx: as noted above. ROS: as noted SHx: Denies Etoh, IVDA, tobacco use Allergies: NKDA Past History - Past Medical History Allergies/Adverse Reactions: Allergies Allergy/AdvReac Type Severity Reaction Status Date / Time No Known Allergies Allergy Verified 11/30/18 14:01 Home Medications: Ambulatory Orders metFORMIN HCL [Metformin HCl] 500 mg PO DAILY 11/04/16 Amlodipine Besylate [Norvasc -] 10 mg PO DAILY tablet 11/09/16 Donepezil HCl [Aricept -] 10 mg PO DAILY 11/30/18 Lisinopril 10 mg PO DAILY 11/30/18 Memantine HCl 10 mg PO DAILY 11/30/18 Sitagliptin Phosphate [Januvia] 100 mg PO DAILY 11/30/18 COPD: No Dementia: Yes (MEMOR LOSS) Diabetes: Yes HTN: Yes - Surgical History Cholecystectomy: Yes - Suicide/Smoking/Psychosocial Hx Smoking History: Never smoked Have you smoked in the past 12 months: No Hx Alcohol Use: No Drug/Substance Use Hx: No Substance Use Type: None Review of Systems - Review of Systems Comments:: 11/30/18 16:57 GENERAL/CONSTITUTIONAL: No fever or chills. No weakness. HEAD, EYES, EARS, NOSE AND THROAT: No change in vision. No ear pain or discharge. No sore throat. CARDIOVASCULAR: No chest pain or shortness of breath RESPIRATORY: No cough, wheezing, or hemoptysis. GASTROINTESTINAL: + Abdominal pain, diarrhea. No nausea, vomiting, constipation. GENITOURINARY: No dysuria, frequency, or change in urination. MUSCULOSKELETAL: No joint or muscle swelling or pain. No neck or back pain. SKIN: No rash NEUROLOGIC: No headache, vertigo, loss of consciousness, or change in strength/ sensation. ENDOCRINE: No increased thirst. No abnormal weight change HEMATOLOGIC/LYMPHATIC: No anemia, easy bleeding, or history of blood clots. ALLERGIC/IMMUNOLOGIC: No hives or skin allergy. *Physical Exam - Vital Signs Last Vital Signs Temp Pulse Resp BP Pulse Ox 97 F L 57 L 18 105/53 L 98 11/30/18 13:57 11/30/18 13:57 11/30/18 13:57 11/30/18 13:57 11/30/18 13:57 - Physical Exam Comments: 11/30/18 16:58 GENERAL: Awake, alert, and fully oriented, in no acute distress HEAD: No signs of trauma, normocephalic, atraumatic EYES: PERRLA, EOMI, sclera anicteric, conjunctiva clear ENT: Auricles normal inspection, hearing grossly normal, nares patent, oropharynx clear without exudates. Moist mucosa NECK: Normal ROM, supple, no lymphadenopathy, JVD, or masses LUNGS: No distress, speaks full sentences, clear to auscultation bilaterally HEART: Regular rate and rhythm, normal S1 and S2, no murmurs, rubs or gallops, peripheral pulses normal and equal bilaterally. ABDOMEN: + Right flank ttp. Negative Soft, NDS, normoactive bowel sounds. No guarding, no rebound. No masses. Neg CVA ttp EXTREMITIES : Normal inspection, Normal range of motion, no edema. No clubbing or cyanosis. NEUROLOGICAL: Cranial nerves II through XII grossly intact. Normal speech, normal gait, no focal sensorimotor deficits SKIN: Warm, Dry, normal turgor, no rashes or lesions noted BACK: Non tender midline, or paraspinal. absent bony deformity, stepoff, or skin change. ED Treatment Course - LABORATORY CBC & Chemistry Diagram: 11/30/18 17:18 11/30/18 17:18 Medical Decision Making - Medical Decision Making 11/30/18 16:55 78 yo F with h/o DM, HTN, dementia who p/w right sided abdominal and flank pain. BP 105/ 53, HR 57, AF, A&Ox3. Physical exam notable for Right flank ttp. Will consider nephrolithiasis, pyelonephiritis, cystitis, gastritis, biliary disease, PNA,, pancreatitis. Treat with IV fluid resuscitation, pain control, reassess. Ed Course: CTAP 11/30/18 17:02 NS 1 L, tylenol 11/30/18 18:41 11/30/18 18:42 Laboratory Tests 11/30/18 11/30/18 17:18 18:10 WBC 9.0 Hgb 13.4 Hct 40.6 Plt Count 240 Urine Color Yellow Urine Appearance Clear Urine pH 5.0 Ur Specific [place] 1.008 L Urine Protein Negative Urine Ketones Negative Urine Blood Negative Urine Nitrite Negative Ur Leukocyte Esterase Negative 11/30/18 18:49 Pt. pain improved Pt. is advised to f/u with GI Pt. pending CTAP, stable. Endorsed to night team. Pending CMP, lipase unremarkable. If CTAP and CMP unremarkable, patient dispo home with GI follow up. *DC/Admit/Observation/Transfer Diagnosis at time of Disposition: Flank pain, acute - Discharge Dispostion Condition at time of disposition: Stable Decision to Admit order: No - Referrals Referrals: Krunal Lamas MD [Primary Care Provider] - Fbay Reaves DO [Staff Physician] - - Patient Instructions Printed Discharge Instructions: DI for Flank Pain Additional Instructions: Please return to the emergency department with any new or worsening symptoms or concerns. Please follow up with your customer service driver, and primary care physician within 72 hours. - Post Discharge Activity
[2018-11-30] MEDS ORDERED: ACETAMINOPHEN 1000 MG/100 ML VIAL (NON FORMULARY) IVPB ONE (16:51)
[2018-11-30] MEDS ORDERED: SODIUM CHLORIDE 1,000 ML IV STA (16:51)
[2018-11-30] MEDS ORDERED: ACETAMINOPHEN INJECTION 100 ML IVPB ONE (17:11)
--- NOTE | 2018-11-30 17:31 | PDOC ---
Documentation entered by Caitlyn Victor SCRIBE, acting as scribe for Anna Haskins MD. Anna Haskins MD: This documentation has been prepared by the nurys, Caitlyn Victor SCRIBE, under my direction and personally reviewed by me in its entirety. I confirm that the documentation accurately reflects all work, treatment, procedures, and medical decision making performed by me. Attending Attestation - Resident Resident Name: Siddharth Roberson - ED Attending Attestation I have performed the following: I have examined & evaluated the patient, The case was reviewed & discussed with the resident, I agree w/resident's findings & plan, Exceptions are as noted - HPI HPI: 11/30/18 18:00 The patient is an 78 year old female with a significant past medical history of diabetes, hypertension, dementia, and external hemorrhoids who presents to the emergency department with abdominal pain for 2 weeks. The patient endorses associated diarrhea and decreased appetite with her abdominal pain. The patient states that her abdominal pain is right sided and in her right flank. She states that she was brought in by family for further evaluation but denies any pain on exam. The patient denies any other symptoms or complaints. - Physicial Exam PE: 11/30/18 18:40 awake alert lungs clear bilat heart rrr no mrg abd soft nt nd. right cva ttp. ext wwp no edema no calf tenderness. moves all four ext. - Medical Decision Making 11/30/18 18:42 78 yo F with h/o dementia , htn dm here with co right flank pain, c/o feeling chilled. no fever. no n/v no pain with movement. no trauma no fall. no urinary complaints. c/o loose watery stool x 2 weeks. uncertain of how many stools / day but nonbloody. on exam pt with right cva tenderness. no midline tenderness and no abd tenderness. differential uti/ pyelo, renal colic, colitis dehydration. renal failure. plan ua labs ivf, ct a/p w/o contrast.
[2018-11-30 17:32] LABS: BASO % 0.7 % (0-2.0); EOS % 1.2 % (0-4.5); HEMATOCRIT 40.6 % (32.4-45.2); HEMOGLOBIN 13.4 GM/dL (10.7-15.3); LYMPH % 21.5 % (8-40); MCH 29.1 pg (25.7-33.7); MEAN CELL VOLUME 88.2 fl (80-96); MEAN PLT VOLUME 9.2 fl (7.5-11.1); MONO % 4.9 % (3.8-10.2); NEUT % 71.7 % (42.8-82.8); PLATELET COUNT 240 K/MM3 (134-434); RDW 14.5 % (11.6-15.6)
[2018-11-30 18:33] LABS: URINE APPEARANCE CLEAR; URINE BILIRUBIN NEGATIVE (NEGATIVE); URINE COLOR YELLOW; URINE GLUCOSE (UA) NEGATIVE (NEGATIVE); URINE KETONE NEGATIVE (NEGATIVE); URINE LEUK ESTERASE NEGATIVE (NEGATIVE); URINE NITRITE NEGATIVE (NEGATIVE); URINE PROTEIN NEGATIVE (NEGATIVE); URINE UROBILINOGEN 0.2 mg/dL (0.2-1.0)
--- NOTE | 2018-11-30 19:04 | PDOC ---
*Physical Exam - Vital Signs Last Vital Signs Temp Pulse Resp BP Pulse Ox 97 F L 57 L 18 105/53 L 98 11/30/18 13:57 11/30/18 13:57 11/30/18 13:57 11/30/18 13:57 11/30/18 13:57 - Physical Exam Comments: 11/30/18 18:58 Patient's care was endorsed to me by Dr. Roberson at the end of his shift. Patient is an 78YOF with h/o dementia, DM, and HTN who p/w right flank and right-sided abdominal pain. Pending rectal temp, chemistries, CT A/P. ED Treatment Course - LABORATORY CBC & Chemistry Diagram: 11/30/18 17:18 11/30/18 18:39 - ADDITIONAL ORDERS Additional order review: Laboratory Results 11/30/18 11/30/18 11/30/18 18:10 17:18 17:18 Sodium Cancelled Potassium Cancelled Chloride Cancelled Carbon Dioxide Cancelled Anion Gap Cancelled BUN Cancelled Creatinine Cancelled Est GFR (CKD-EPI)AfAm Cancelled Est GFR (CKD-EPI)NonAf Cancelled Random Glucose Cancelled Calcium Cancelled Total Bilirubin Cancelled AST Cancelled ALT Cancelled Alkaline Phosphatase Cancelled Total Protein Cancelled Albumin Cancelled Lipase 250 Urine Color Yellow Urine Appearance Clear Urine pH 5.0 Ur Specific [place] 1.008 L Urine Protein Negative Urine Glucose (UA) Negative Urine Ketones Negative Urine Blood Negative Urine Nitrite Negative Urine Bilirubin Negative Urine Urobilinogen 0.2 Ur Leukocyte Esterase Negative 11/30/18 17:18 RBC 4.60 MCV 88.2 MCHC 33.0 RDW 14.5 MPV 9.2 Neutrophils % 71.7 Lymphocytes % 21.5 Monocytes % 4.9 Eosinophils % 1.2 Basophils % 0.7 - Medications Given in the ED: ED Medications Discontinued Medications Generic Name Dose Route Start Last Admin Trade Name Freq PRN Reason Stop Dose Admin Acetaminophen 1,000 mg 11/30/18 16:51 11/30/18 17:31 Ofirmev Injection - IVPB 11/30/18 16:52 1,000 mg ONCE ONE Administration Sodium Chloride 1,000 mls @ 1,000 mls/hr 11/30/18 16:51 11/30/18 17:31 Normal Saline - IV 11/30/18 17:50 1,000 mls/hr ASDIR STA Administration Medical Decision Making - Medical Decision Making 11/30/18 19:11 78YOF with h/o DM, HTN, dementia; p/w right flank pain and right sided abdominal pain, diarrhea. Initial Vital Signs Temp Pulse Resp BP Pulse Ox 97 F L 57 L 18 105/53 L 98 11/30/18 13:57 11/30/18 13:57 11/30/18 13:57 11/30/18 13:57 11/30/18 13:57 Exam: As noted in Physical Exam section. DDX IBNLT: renal colic, obstructive uropathy, UTI/pyelonephritis, rental artery aneurysm or dissection (flori w/ hematuria and no stone visualized on imaging), AAA/AD, cholecystitis, cholangitis, pancreatitis, gastritis, PUD, colitis, ruptured diverticulosis, diverticulitis wwo abscess or perforation, appendicitis , hernia, SBO, malignancy, splenic infarction, mesenteric ischemia, bowel perforation, musculoskeletal, ACS, etc. W/U ordered: Labs as noted below, EKG, CXR, CT A/P TX ordered: IVF Laboratory Tests 11/30/18 11/30/18 11/30/18 17:18 17:18 17:18 WBC 9.0 RBC 4.60 Hgb 13.4 Hct 40.6 MCV 88.2 MCH 29.1 MCHC 33.0 RDW 14.5 Plt Count 240 MPV 9.2 Absolute Neuts (auto) 6.5 Neutrophils % 71.7 Lymphocytes % 21.5 Monocytes % 4.9 Eosinophils % 1.2 Basophils % 0.7 Nucleated RBC % 0 Sodium Cancelled Potassium Cancelled Chloride Cancelled Carbon Dioxide Cancelled Anion Gap Cancelled BUN Cancelled Creatinine Cancelled Est GFR (CKD-EPI)AfAm Cancelled Est GFR (CKD-EPI)NonAf Cancelled Random Glucose Cancelled Calcium Cancelled Total Bilirubin Cancelled AST Cancelled ALT Cancelled Alkaline Phosphatase Cancelled Total Protein Cancelled Albumin Cancelled Lipase 250 Urine Color Urine Appearance Urine pH Ur Specific [place] Urine Protein Urine Glucose (UA) Urine Ketones Urine Blood Urine Nitrite Urine Bilirubin Urine Urobilinogen Ur Leukocyte Esterase 11/30/18 11/30/18 11/30/18 18:10 18:39 18:39 WBC RBC Hgb Hct MCV MCH MCHC RDW Plt Count MPV Absolute Neuts (auto) Neutrophils % Lymphocytes % Monocytes % Eosinophils % Basophils % Nucleated RBC % Sodium 141 Potassium 4.4 Chloride 113 H Carbon Dioxide 18 L Anion Gap 10 BUN 20.9 H Creatinine 1.5 H Est GFR (CKD-EPI)AfAm 37.74 Est GFR (CKD-EPI)NonAf 32.56 Random Glucose 195 H Calcium 8.5 Total Bilirubin 0.2 AST 11 L ALT 18 Alkaline Phosphatase 83 Total Protein 7.1 Albumin 3.6 Lipase 232 Urine Color Yellow Urine Appearance Clear Urine pH 5.0 Ur Specific [place] 1.008 L Urine Protein Negative Urine Glucose (UA) Negative Urine Ketones Negative Urine Blood Negative Urine Nitrite Negative Urine Bilirubin Negative Urine Urobilinogen 0.2 Ur Leukocyte Esterase Negative EXAM: CT abdomen and pelvis without contrast IMAGES:480 DATE OF EXAM: 2018-11-30 19:09:25 REASON FOR EXAM: Right flank pain COMPARISON: None Findings: Mild atelectasis and scarring in lung bases. No pleural effusions. Cholecystectomy. Tiny left hepatic granulomas. Pancreas, adrenal glands, and spleen are grossly unremarkable Bilateral renal cortical scarring. 1.6 cm mildly complex right renal cyst with peripheral calcification. Left renal cyst. No ureteral calculi hydronephrosis. No AAA. No evidence for diverticulitis, appendicitis, small bowel obstruction, free fluid, or free air. Degenerative changes in the spine and pelvis, most notably moderate central canal stenosis and neural foraminal stenosis at L4-L5. No acute findings. Rectal temp is 97.9. 11/30/18 20:53 This patient has gotten significant relief of symptoms while in the ED. On last reassessment, vitals are wnl, pain is reasonably controlled, and exam is benign. Workup is not concerning for emergency-level pathology at this time. This patient is appropriate for discharge with close outpatient follow up. They are comfortable with this plan and will follow up with their primary care provider in 1-3 days. They are counseled to stay well-hydrated. Specific return precautions are discussed and they will come back to the ER if necessary. *DC/Admit/Observation/Transfer Diagnosis at time of Disposition: Flank pain, acute - Discharge Dispostion Disposition: HOME Condition at time of disposition: Stable Decision to Admit order: No - Prescriptions Prescriptions: Pantoprazole Sodium [Protonix -] 20 mg PO DAILY #14 tablet.ec - Referrals Referrals: Krunal Lamas MD [Primary Care Provider] - Lm Dalal DO [Staff Physician] - - Patient Instructions Printed Discharge Instructions: DI for Flank Pain Additional Instructions: You were seen in the ER for abdominal pain. We did an exam, labs, a CT scan, an X-ray of the chest, and an electrocardiogram. After our assessment, we do not believe you are having a medical emergency at this time, and we believe you are safe to go home. Please follow up with your regular PCP and your sugar refiner Dr. Dalal in 1-3 days. Call their clinic, tell them you were seen in the ER, and tell them you need a follow-up. Take the pantoprazole at home as prescribed (we are giving you a small refill to burr picker at your pharmacy, so give this whether or not Marquita is feeling the pain because it is meant to be a preventative medicine). If you have any new or worsening symptoms , please come back to the ER at any time (24 hours a day). If you are having severe or life threatening symptoms, or symptoms that make it unsafe to drive or have someone drive you, please call 911. - Post Discharge Activity
[2018-11-30 19:16] LABS: ALBUMIN 3.6 g/dl (3.4-5.0); BILIRUBIN,TOTAL 0.2 mg/dL (0.2-1); BLOOD UREA NITROGEN 20.9 mg/dL (7-18); CALCIUM 8.5 mg/dL (8.5-10.1); CREATININE 1.5 mg/dL (0.55-1.3); POTASSIUM 4.4 mmol/L (3.5-5.1); TOT PROT 7.1 g/dl (6.4-8.2)
--- NOTE | 2018-11-30 20:36 | PDOC ---
*Physical Exam - Vital Signs Last Vital Signs Temp Pulse Resp BP Pulse Ox 97 F L 57 L 18 105/53 L 98 11/30/18 13:57 11/30/18 13:57 11/30/18 13:57 11/30/18 13:57 11/30/18 13:57 ED Treatment Course - LABORATORY CBC & Chemistry Diagram: 11/30/18 17:18 11/30/18 18:39 - ADDITIONAL ORDERS Additional order review: Laboratory Results 11/30/18 11/30/18 11/30/18 18:39 18:39 18:10 Sodium 141 Potassium 4.4 Chloride 113 H Carbon Dioxide 18 L Anion Gap 10 BUN 20.9 H Creatinine 1.5 H Est GFR (CKD-EPI)AfAm 37.74 Est GFR (CKD-EPI)NonAf 32.56 Random Glucose 195 H Calcium 8.5 Total Bilirubin 0.2 AST 11 L ALT 18 Alkaline Phosphatase 83 Total Protein 7.1 Albumin 3.6 Lipase 232 Urine Color Yellow Urine Appearance Clear Urine pH 5.0 Ur Specific [place] 1.008 L Urine Protein Negative Urine Glucose (UA) Negative Urine Ketones Negative Urine Blood Negative Urine Nitrite Negative Urine Bilirubin Negative Urine Urobilinogen 0.2 Ur Leukocyte Esterase Negative 11/30/18 11/30/18 17:18 17:18 Sodium Cancelled Potassium Cancelled Chloride Cancelled Carbon Dioxide Cancelled Anion Gap Cancelled BUN Cancelled Creatinine Cancelled Est GFR (CKD-EPI)AfAm Cancelled Est GFR (CKD-EPI)NonAf Cancelled Random Glucose Cancelled Calcium Cancelled Total Bilirubin Cancelled AST Cancelled ALT Cancelled Alkaline Phosphatase Cancelled Total Protein Cancelled Albumin Cancelled Lipase 250 Urine Color Urine Appearance Urine pH Ur Specific [place] Urine Protein Urine Glucose (UA) Urine Ketones Urine Blood Urine Nitrite Urine Bilirubin Urine Urobilinogen Ur Leukocyte Esterase 11/30/18 17:18 RBC 4.60 MCV 88.2 MCHC 33.0 RDW 14.5 MPV 9.2 Neutrophils % 71.7 Lymphocytes % 21.5 Monocytes % 4.9 Eosinophils % 1.2 Basophils % 0.7 - Medications Given in the ED: ED Medications Discontinued Medications Generic Name Dose Route Start Last Admin Trade Name Freq PRN Reason Stop Dose Admin Acetaminophen 1,000 mg 11/30/18 16:51 11/30/18 17:31 Ofirmev Injection - IVPB 07/20/19 16:52 1,000 mg ONCE ONE Administration Sodium Chloride 1,000 mls @ 1,000 mls/hr 11/30/18 16:51 11/30/18 17:31 Normal Saline - IV 11/30/18 17:50 1,000 mls/hr ASDIR STA Administration Medical Decision Making - Medical Decision Making 11/30/18 20:35 Received pt on signout. She has abd pain. Normal labs and no fever and no UTI and CT abd/pelvis pending: Patient Name: FRED PUTNAM THIS IS A PRELIMINARY REPORT FROM IMAGING THEOLOGY PROFESSOR EXAM: CT abdomen and pelvis without contrast IMAGES:480 DATE OF EXAM: 2018-11-30 19:09:25 REASON FOR EXAM: Right flank pain COMPARISON: None Findings: Mild atelectasis and scarring in lung bases. No pleural effusions. Cholecystectomy. Tiny left hepatic granulomas. Pancreas, adrenal glands, and spleen are grossly unremarkable. Bilateral renal cortical scarring. 1.6 cm mildly complex right renal cyst with peripheral calcification. Left renal cyst. No ureteral calculi hydronephrosis. No AAA. No evidence for diverticulitis, appendicitis, small bowel obstruction, free fluid, or free air. Degenerative changes in the spine and pelvis, most notably moderate central canal stenosis and neural foraminal stenosis at L4-L5. No acute findings. *DC/Admit/Observation/Transfer Diagnosis at time of Disposition: Flank pain, acute - Discharge Dispostion Disposition: HOME Condition at time of disposition: Stable Decision to Admit order: No - Referrals Referrals: Krunal Lamas MD [Primary Care Provider] - Faby Reaves DO [Staff Physician] - - Patient Instructions Printed Discharge Instructions: DI for Flank Pain Additional Instructions: Please return to the emergency department with any new or worsening symptoms or concerns. Please follow up with your wash helper, and primary care physician within 72 hours. - Post Discharge Activity
[2018-11-30] MEDS ORDERED: KETOROLAC TROMETHAMINE 30 MG/1 ML VIAL IVPUSH ONE (20:37)
[2018-11-30] MEDS ORDERED: KETOROLAC TROMETHAMINE 30 MG/1 ML VIAL ONE (20:51)
[2018-11-30 21:03] VITALS: BP 134/85; PULSE 69; TEMP 97.9
== END 2018-11-30 21:03 | disposition home or self-care (01) ==
LOC: JER 13:56
PROC: 3E033NZ Introduction of Analgesics, Hypnotics, Sedatives into Peripheral Vein, Percutaneous Approach (ICD-10-PCS; principal; 2018-11-30)
PROC: 3E0333Z Introduction of Anti-inflammatory into Peripheral Vein, Percutaneous Approach (ICD-10-PCS; 2018-11-30)
PROC: 3E0337Z Introduction of Electrolytic and Water Balance Substance into Peripheral Vein, Percutaneous Approach (ICD-10-PCS; 2018-11-30)
DX: R10.31 Right lower quadrant pain (principal); E11.9 Type 2 diabetes mellitus without complications; I10 Essential (primary) hypertension; F03.90 Unspecified dementia, unspecified severity, without behavioral disturbance, psychotic disturbance, mood disturbance, and anxiety
CPT/HCPCS: 36415; 71046-TC-FY; 74176-TC; 80053; 81003; 83690; 85025; 87086; 96361; 96374; 96375; 99283-25; J0131; J7030